=== PATIENT | female | born 1995 | race Caucasian/White ===

== ENCOUNTER 2017-08-19 10:47 | Emergency (ER) | payer OTHER ==
[~2017-08-19 10:47] MED LIST: NAPR500 PO
--- NOTE | 2017-08-19 11:22 | PD ---
HPI Chief Complaint Lost mucous plug Date Seen: Aug 19, 2017 Time Seen: 11:14 Travel History International Travel<30 Days: No Contact w/Intl Traveler<30Days: No Known Affected Area: No History of Present Illness HPI 22-year-old primigravida at 36+ weeks gestation who comes noting a mucousy discharge since last night. She reports that she was 2-3 cm dilated in the clinic this week. She denies significant contractions, bleeding or leakage of fluid. History Past Medical History Medical History: Denies Significant Hx Obstetric History Obstetric History Primigravida, she receives care with Dr. Eddy. She reports no complications with this . Past Surgical History Narrative Surgical Tonsillectomy Family History Family History: Negative Social History Alcohol Use: No Tobacco Use: No Substance Abuse: No Allergies-Medications (Allergen,Severity, Reaction): Coded Allergies: No Known Allergies (Verified , 06/22/15) Home Meds Active Scripts Naproxen (Naprosyn) 500 Mg Tab, 500 MG PO BID Y for PAIN, #20 TAB Prov:Allen Muir MD 06/22/15 Review of Systems Except as stated in HPI: all other systems reviewed are Neg Physical Exam Narrative GENERAL: Well-nourished, well-developed patient. SKIN: Warm and dry. HEAD: Normocephalic and atraumatic. EYES: No scleral icterus. No injection or drainage. ENT: No nasal drainage noted. Mucous membranes pink. Airway patent. NECK: Supple, trachea midline. No JVD. CARDIOVASCULAR: Regular rate and rhythm without murmurs, gallops, or rubs. RESPIRATORY: Breath sounds equal bilaterally. No accessory muscle use. BREASTS: Bilateral exam showed no masses , no retractions, no nipple discharge. ABDOMEN/GI: Abdomen soft, non-tender, bowel sounds present, no rebound, no guarding Gravid to [-] weeks size Fundal Height: [-32] GENITOURINARY: External Genitalia: intact and normal in appearance BUS glands: [-] Cervix: [-] Dilatation: [-2] Effacement: [80-] Station: [-] Presentation: [-vtx] Membranes: [intact] Uterine Contractions: [-] FHT's: Category: [1-] Baseline: [-] Reactive: [-yes] Variability: [-] Decels: [-] EXTREMITIES: No cyanosis or edema. BACK: Nontender without obvious deformity. No CVA tenderness. NEUROLOGICAL: Awake and alert. Motor and sensory grossly within normal limits. Five out of 5 muscle strength in all muscle groups. Normal speech. Data Data Vital Signs Reviewed: Yes MDM Medical Record Reviewed: Yes Narrative Course / MDM Assessment: Primigravida at 36+ weeks gestation with mucousy discharge not in labor Plan: Continue routine care Diagnosis Diagnosis: Primary Impression: 36 weeks gestation of Additional Impression: Vaginal discharge in in third trimester Disposition: 01 DISCHARGE HOME Condition: Good Bharathi Whitney MD Aug 19, 2017 11:22
== END 2017-08-19 12:57 | disposition home or self-care (01) ==
LOC: HOBED 10:47
DX: O26.893 Other specified pregnancy related conditions, third trimester (principal); N89.8 Other specified noninflammatory disorders of vagina; Z3A.36 36 weeks gestation of pregnancy
CPT/HCPCS: 59025

== ENCOUNTER 2017-08-28 11:45 | Inpatient (IN) | payer OTHER ==
[2017-08-28] VITALS (35 sets, daily range): BP systolic 105–133; BP diastolic 60–98; PULSE 67–122; RESP 16–18; TEMP 97.6–99.4
[~2017-08-28] VITALS: Ht 160 cm; Wt 60.0 kg
[2017-08-28] MEDS ORDERED: LACTATED RINGER'S 1000 ML INJ 1,000 ML IV PRN (12:26)
[2017-08-28] MEDS ORDERED: LACTATED RINGER'S 1000 ML INJ 1,000 ML IV SCH (12:26)
--- NOTE | 2017-08-28 12:26 | HHI.HP ---
HPI Chief Complaint Complains of painful contractions Date Seen: Aug 28, 2017 Time Seen: 12:20 Travel History International Travel<30 Days: No Contact w/Intl Traveler<30Days: No Known Affected Area: No History of Present Illness HPI Patient is 22-year-old white female at [address] Eddy for care presents with painful regular contractions. Denies bleeding or rupture the membranes. She thought she might be leaking a little fluid her amnio sure was negative, heart rate tracing is reactive and she is luis enrique every 2-3 minutes. Weeks Gestation: 38 Para: 0 : 1 History Social History Alcohol Use: No Tobacco Use: No Substance Abuse: No Allergies-Medications (Allergen,Severity, Reaction): Coded Allergies: No Known Allergies (Verified , 06/22/15) Home Meds Discontinued Scripts Naproxen (Naprosyn) 500 Mg Tab, 500 MG PO BID Y for PAIN, #20 TAB Prov:Allen Muir MD 06/22/15 Review of Systems General / Constitutional: No: Fever, Weight Gain, Chills, Other Eyes: No: Diploplia, Blurred Vision, Visual changes, Pain, Photophobia HENT: No: Headaches, Vertigo, Lightheadedness Cardiovascular: No: Irregular Rhythm, Chest Pain or Discomfort, Palpitations, Tachycardia, Syncope, Varicosities, Edema, Cyanosis Respiratory: No: Cough, Short of Breath, Other Gastrointestinal: Abdominal Pain, No: Nausea, Vomiting, Diarrhea Genitourinary: No: Decreased Urinary Output, Oliguria Musculoskeletal: No: Limited ROM, Weakness, Cramping, Edema, Pain Skin: No Rash, No Itching, No Dryness, No Lumps, No Change in Pigmentation, No Change in Nails, No Alopecia, No Lesions Neurologic: No: Weakness, Dizziness, Syncope, Focal Abnormalities, Coordination Problem, Headache, Slurred Speech, Seizures Psychiatric: No: Depression, Suicidal Ideations, Homicidal Ideation Endocrine: No: Heat Intolerance, Cold Intolerance, Polydipsia, Polyuria, Other Physical Exam Narrative GENERAL: Well-nourished, well-developed patient. SKIN: Warm and dry. HEAD: Normocephalic and atraumatic. EYES: No scleral icterus. No injection or drainage. ENT: No nasal drainage noted. Mucous membranes pink. Airway patent. NECK: Supple, trachea midline. No JVD. CARDIOVASCULAR: Regular rate and rhythm without murmurs, gallops, or rubs. RESPIRATORY: Breath sounds equal bilaterally. No accessory muscle use. BREASTS: Bilateral exam showed no masses , no retractions, no nipple discharge. ABDOMEN/GI: Abdomen soft, non-tender, bowel sounds present, no rebound, no guarding Gravid to [38-] weeks size Fundal Height: [38-] GENITOURINARY: External Genitalia: intact and normal in appearance BUS glands: [-] Cervix: [-] Dilatation: [4-] Effacement: [90-] Station: [-1] Presentation: [vtx-] Membranes: [intact amnisure neg] Uterine Contractions: [q 2-3 min-] FHT's: Category: [-1] Baseline: [133-] Reactive: [yes-] Variability: [mod-] Decels: [0-] EXTREMITIES: No cyanosis or edema. BACK: Nontender without obvious deformity. No CVA tenderness. NEUROLOGICAL: Awake and alert. Motor and sensory grossly within normal limits. Five out of 5 muscle strength in all muscle groups. Normal speech. Caprini VTE Risk Assessment Caprini VTE Risk Assessment: No/Low Risk (score <= 1) Caprini Risk Assessment Model Point Value = 1 Point Value = 2 Point Value = 3 Point Value = 5 Age 41-60 Minor surgery BMI > 25 kg/m2 Swollen legs Varicose veins or History of unexplained or recurrent spontaneous Oral contraceptives or hormone replacement Sepsis (< 1 month) Serious lung disease, including pneumonia (< 1 month) Abnormal pulmonary function Acute myocardial infarction Congestive heart failure (< 1 month) History of inflammatory bowel disease Medical patient at bed rest Age 61-74 Arthroscopic surgery Major open surgery (> 45 min) Laparoscopic surgery (> 45 min) Malignancy Confined to bed (> 72 hours) Immobilizing plaster cast Central venous access Age >= 75 History of VTE Family history of VTE Factor V Leiden Prothrombin [id number] Lupus anticoagulant Anticardiolipin antibodies Elevated serum homocysteine Heparin-induced thrombocytopenia Other congenital or acquired thrombophilia Stroke (< 1 month) Elective arthroplasty Hip, pelvis, or leg fracture Acute spinal cord injury (< 1 month) Prophylaxis Regimen Total Risk Factor Score Risk Level Prophylaxis Regimen 0-1 Low Early ambulation 2 Moderate Order ONE of the following: *Sequential Compression Device (SCD) *Heparin 5000 units SQ BID 3-4 Higher Order ONE of the following medications: *Heparin 5000 units SQ TID *Enoxaparin/Lovenox 40 mg SQ daily (WT < 150 kg, CrCl > 30 mL/min) *Enoxaparin/Lovenox 30 mg SQ daily (WT < 150 kg, CrCl > 10-29 mL/min) *Enoxaparin/Lovenox 30 mg SQ BID (WT < 150 kg, CrCl > 30 mL/min) AND/OR *Sequential Compression Device (SCD) 5 or more Highest Order ONE of the following medications: *Heparin 5000 units SQ TID (Preferred with Epidurals) *Enoxaparin/Lovenox 40 mg SQ daily (WT < 150 kg, CrCl > 30 mL/min) *Enoxaparin/Lovenox 30 mg SQ daily (WT < 150 kg, CrCl > 10-29 mL/min) *Enoxaparin/Lovenox 30 mg SQ BID (WT < 150 kg, CrCl > 30 mL/min) AND *Sequential Compression Device (SCD) Assessment/Plan Assessment and Plan Patient is 22-year-old white female at 38 weeks goes to the [facility] and presents in active labor. Cervix is 4 cm 90% effaced. Contractions are regular. heart rate tracing is reactive. Plan--admit to labor and delivery, manage labor ,augment as needed ,and anticipate vaginal delivery will discuss with her OB, doctor David White II, MD Aug 28, 2017 12:26
[2017-08-28] MEDS ORDERED: SODIUM CHLORID 0.9% 500 ML INJ 500 ML IV PRN (12:30)
[2017-08-28] MEDS ORDERED: OXYTOCIN 30 UNITS-500ML PREMIX 500 ML IV ONE (12:30)
[2017-08-28] MEDS ORDERED: CITRIC ACID-SODIUM CITRATE LIQ 30 ML UDC PO SCH (12:30)
[2017-08-28] MEDS ORDERED: ONDANSETRON HCL 4 MG/2 ML VIAL IV PUSH PRN (12:30)
[2017-08-28] MEDS ORDERED: LIDOCAINE HCL 1% 50 ML VIAL INFIL PRN (12:30)
[2017-08-28] MEDS ORDERED: LIDOCAINE HCL 1% 50 ML VIAL I-DERMAL PRN (12:30)
[2017-08-28] MEDS ORDERED: MINERAL OIL 10 ML VIAL TOPICAL PRN (12:30)
[2017-08-28] MEDS ORDERED: SODIUM CHLOR 0.9% 1000 ML INJ 1,000 ML IV PRN (12:46)
[2017-08-28 13:30] LABS: AUTOMATED NEUTROPHIL # 19.4 TH/MM3 (1.8-7.7); BASOPHIL % 0.1 % (0.0-2.0); EOSINOPHIL % 0.1 % (0.0-4.0); HEMATOCRIT 36.9 % (35.0-46.0); HEMO FLAGS DIFF FINAL; LYMPH % 8.7 % (9.0-44.0); LYMPHOCYTE # 1.9 TH/MM3 (1.0-4.8); MEAN CORPUSCULAR HEMOGLOBIN 30.1 PG (27.0-34.0); MEAN CORPUSCULAR HGB CONC 33.4 % (32.0-36.0); MONO % 3.9 % (0.0-8.0); NEUT % 87.2 % (16.0-70.0); PLATELET COUNT 212 TH/MM3 (150-450); RED CELL DISTRIBUTION WIDTH 12.8 % (11.6-17.2); WHITE BLOOD COUNT 22.3 TH/MM3 (4.0-11.0)
[2017-08-28] MEDS ORDERED: ePHEDrine/NS 25 MG/5 ML SYRINGE ONE (13:58)
[2017-08-28] MEDS ORDERED: fentaNYL 2MCG-BUPIV 0.125% INJ 100 ML ONE (13:58)
[2017-08-28] MEDS ORDERED: NO SYSTEM NARCOTICS PRN (14:45)
[2017-08-28] MEDS ORDERED: DO NOT ADMINISTER ANTICOAGULANTS PRN (14:45)
[2017-08-28] MEDS ORDERED: fentaNYL 2MCG-BUPIV 0.125% 100 ML EPIDURAL SCH (14:45)
[2017-08-28] MEDS ORDERED: ePHEDrine/NS 25 MG/5 ML SYRINGE IV PUSH PRN (15:00)
[2017-08-28] MEDS ORDERED: DIPHTH/TETANUS/ACEL PERTUSSIS (BOOSTER) 0.5 ML VIAL/PFS IM ONE (16:00)
[2017-08-28] MEDS ORDERED: MEASLES, MUMPS, RUBELLA VACCINE 0.5 ML VIAL SQ ONE (16:00)
[2017-08-28 17:11] LABS: BLOOD, URINE SMALL (NEG); COMMENT (UR) CULT NOT INDICATED; CULTURE IF INDICATED CULT NOT INDICATED; GLUCOSE,URINE NEG (NEG); KETONE, URINE 40 mg/dL (NEG); MUCUS URINE FEW /lpf (OCC); NITRITE,URINE NEG (NEG); PH, URINE 6.5 (5.0-8.5); SQUAMOUS EPITHELIAL CELL URINE 1 /hpf (0-5); URINE COLOR YELLOW (YELLW/STRAW)
--- NOTE | 2017-08-28 20:27 | PD.OB.DELI ---
Weeks gestation: 38 Gest age assessed date: Aug 28, 2017 Gest age assessed time: 19:00 Pt started active labor?: Yes Medical induction of labor?: No Artificial rupture of membrane: Yes (clear fluid) Artifical ROM time: 16:29 Anesthesia: Epidural Episiotomy: None Vaginal Delivery: Normal, Spontaneous Presentation: Occiput anterior Nuchal Cord: None, Other (three-vessel cord, intact) Delayed cord clamping (45 sec): Yes Shoulder Dystocia: Other (none required) Infant: Male, Single Delivery date: Aug 28, 2017 Delivery time: 19:32 One Minute : 9 Five Minute : 9 Placenta: Spontaneous delivery, Intact, 3 vessel cord Laceration: 1 deg (superficial left sulcal first-degree, right labial laceration,) Repair: Vicryl interrupted (right labial), Vicryl running (posterior lac) Estimated blood loss: 300 Additional Information The patient began pushing after the bed was broken down, the head upon was allowed to restitute naturally after delivery with a supported perineum, with gentle downward guidance anterior shoulder was delivered followed by gentle upper guidance for the posterior shoulder, the torso and lower extremities delivered with ease with continued perineal support. The had spontaneous cry and was placed on mom's abdomen for skin to skin contact, we allow delayed cord clamping. After the cord was clamped and cut, cord blood was obtained. Pitocin was bolused and with fundal massage the placenta was delivered , there is minimal bleeding from above and uterus was firm. The perineum vagina and cervix were inspected and a first-degree was repaired with 3-0 Vicryl in a running fashion, and the right labial was repaired externally with interrupteds and internally with running 3-0 Vicryl. The patient tolerated the procedure well and was left in the birthing suite with her . Matthew Navarro MD Aug 28, 2017 20:27
[2017-08-28] MEDS ORDERED: ZOLPIDEM TARTRATE 5 MG TAB PO PRN (20:30)
[2017-08-28] MEDS ORDERED: ACETAMINOPHEN 325 MG TAB PO PRN (20:30)
[2017-08-28] MEDS ORDERED: WITCH HAZEL 50%/GLYCERIN 12.5% 40 PAD JAR TOPICAL PRN (20:30)
[2017-08-28] MEDS ORDERED: ONDANSETRON ODT 4 MG TAB PO PRN (20:30)
[2017-08-28] MEDS ORDERED: DOCUSATE SODIUM 50 MG/SENNA 8.6 MG TAB PO PRN (20:30)
[2017-08-28] MEDS ORDERED: ALUMINUM/MAGNESIUM/SIMETH 30 ML CUP PO PRN (20:30)
[2017-08-28] MEDS ORDERED: IBUPROFEN 800 MG TAB PO PRN (20:30)
[2017-08-28] MEDS ORDERED: SODIUM CHLORIDE 0.9% FLUSH 10 ML FLUSH IV FLUSH PRN (20:30)
[2017-08-28] MEDS ORDERED: BENZOCAINE 20% TOPICAL SPRAY 60 ML CAN TOPICAL PRN (20:30)
[2017-08-28] MEDS ORDERED: OXYTOCIN 30 UNITS-500ML PREMIX 500 ML IV SCH (20:30)
[2017-08-28] MEDS ORDERED: oxyCODONE/ACETAMINOPHEN 5 MG/325 MG TAB PO PRN ×2 (20:30)
--- NOTE | 2017-08-28 20:51 | HHI.DCPOC ---
Discharge Care Plan Diagnosis: (1) Normal vaginal delivery (2) Term (3) Normal labor Your Health Problems Are: Vaginal delivery Report Symptoms to Your Doctor -Temperature above 100.5 degrees -Redness, of incision or excessive or foul smelling drainage -Unusual pain or calf pain -Increased vaginal bleeding -Painful or difficulty urinating -Feelings of extreme sadness or anxiety after 2 weeks Goals to Promote Your Health * To prevent worsening of your condition and complications * To maintain your health at the optimal level Directions to Meet Your Goals Take your medications as prescribed Follow your dietary instruction Follow activity as directed Ensure plenty of rest for recovery Drink fluids for hydration Keep your appointments as scheduled Take your immunizations and boosters as scheduled If your symptoms worsen call your PCP, if no PCP go to Urgent Care Center or Emergency Room Smoking is Dangerous to Your Health. Avoid second hand smoke Call the 24-hour crisis hotline for domestic abuse at Matthew Navarro MD Aug 28, 2017 20:51
[2017-08-28] MEDS ORDERED: SODIUM CHLORIDE 0.9% FLUSH 10 ML FLUSH IV FLUSH SCH (21:00)
[2017-08-29 07:41] VITALS: BP 105/63; PULSE 82; RESP 18; TEMP 98.3; O2SAT 98
--- NOTE | 2017-08-29 08:34 | HHI.OB ---
Subjective Post Day: 1 Remarks doing well Objective Vitals/I&O Vital Signs Date Time Temp Pulse Resp B/P (MAP) Pulse Ox O2 Delivery O2 Flow Rate FiO2 08/29/17 07:41 98.3 18 98 08/29/17 07:41 82 105/63 (77) 08/28/17 23:00 98.5 85 18 121/67 (85) 08/28/17 22:50 98.5 08/28/17 22:50 85 18 121/67 (85) 08/28/17 22:00 99.4 18 08/28/17 21:45 99 114/67 (83) 08/28/17 21:30 91 119/69 (86) 08/28/17 21:27 16 08/28/17 21:15 95 122/74 (90) 08/28/17 21:15 16 08/28/17 21:00 16 08/28/17 21:00 67 118/66 (83) 08/28/17 20:45 78 120/61 (80) 08/28/17 20:30 81 116/71 (86) 08/28/17 20:26 18 08/28/17 20:15 98.4 08/28/17 20:15 86 18 105/69 (81) 08/28/17 20:14 87 112/67 (82) 08/28/17 18:30 122 126/78 (94) 08/28/17 18:00 83 111/60 (77) 08/28/17 17:30 84 118/80 (93) 08/28/17 17:00 93 119/73 (88) 08/28/17 16:30 92 118/74 (89) 08/28/17 16:13 97.9 18 08/28/17 16:00 94 117/76 (90) 08/28/17 15:34 18 08/28/17 15:30 97 122/75 (91) 08/28/17 15:00 83 117/71 (86) 08/28/17 14:45 104 127/71 (89) 08/28/17 14:45 85 08/28/17 14:40 103 08/28/17 14:40 91 116/98 (104) 08/28/17 14:35 80 114/62 (79) 08/28/17 14:35 79 08/28/17 14:30 81 117/70 (86) 08/28/17 14:30 83 08/28/17 14:25 82 115/69 (84) 08/28/17 14:25 79 08/28/17 14:20 82 114/69 (84) 08/28/17 14:20 83 08/28/17 14:15 80 122/74 (90) 08/28/17 14:15 83 08/28/17 14:10 83 08/28/17 14:10 85 133/77 (95) 08/28/17 14:08 80 126/72 (90) 08/28/17 14:05 81 08/28/17 14:00 82 08/28/17 13:46 97.6 08/28/17 13:45 82 18 132/77 (95) Objective Remarks GENERAL: Well-nourished, well-developed patient. CARDIOVASCULAR: Regular rate and rhythm without murmurs, gallops, or rubs. RESPIRATORY: Breath sounds equal bilaterally. No accessory muscle use. ABDOMEN/GI: Abdomen soft, non-tender. Fundus: Firm, non-tender at umbilicus. GENITOURINARY: Light to moderate bleeding. EXTREMITIES: No cyanosis or edema, non-tender, without signs of DVT. Medications and IVs Current Medications Medications (Trade) Dose Ordered Sig/Larry Route Start Time Stop Time Status Last Admin (NS Flush) 2 ml BID IV FLUSH 08/28/17 21:00 (NS Flush) 2 ml UNSCH PRN IV FLUSH 08/28/17 20:30 (Tylenol) 650 mg Q4H PRN PO 08/28/17 20:30 (Motrin) 800 mg Q8H PRN PO 08/28/17 20:30 (Percocet 5-325 Mg) 1 tab Q4H PRN PO 08/28/17 20:30 (Percocet 5-325 Mg) 2 tab Q4H PRN PO 08/28/17 20:30 (Americaine 20% Top Spr) 1 spray Q4H PRN TOPICAL 08/28/17 20:30 (Tucks Pads) 1 applic QID PRN TOPICAL 08/28/17 20:30 (Ana María-Colace) 2 tab Q12H PRN PO 08/28/17 20:30 (Ambien) 5 mg HS PRN PO 08/28/17 20:30 (Mag-Al Plus Susp Liq) 15 ml Q8H PRN PO 08/28/17 20:30 (Zofran Odt) 4 mg Q6H PRN PO 08/28/17 20:30 Assessment/Plan Problem List: (1) Normal vaginal delivery ICD Codes: O80 - Encounter for full-term uncomplicated delivery Assessment and Plan s/p ppd #1r Discharge Planning routine Attending Attestation pt seen by Melanie Gordon MD Aug 29, 2017 08:34
[2017-08-29 20:00] VITALS: BP 113/67; PULSE 77; RESP 18; TEMP 98.3; O2SAT 99
--- NOTE | 2017-08-30 07:17 | HHI.OB ---
Subjective Post Day: 2 Remarks doing well with nursing no issues Objective Vitals/I&O Vital Signs Date Time Temp Pulse Resp B/P (MAP) Pulse Ox O2 Delivery O2 Flow Rate FiO2 08/29/17 20:00 113/67 (82) 08/29/17 20:00 98.3 77 18 99 08/29/17 07:41 98.3 18 98 08/29/17 07:41 82 105/63 (77) Objective Remarks GENERAL: Well-nourished, well-developed patient. CARDIOVASCULAR: Regular rate and rhythm without murmurs, gallops, or rubs. RESPIRATORY: Breath sounds equal bilaterally. No accessory muscle use. ABDOMEN/GI: Abdomen soft, non-tender. Fundus: Firm, non-tender at umbilicus. GENITOURINARY: Light to moderate bleeding. EXTREMITIES: No cyanosis or edema, non-tender, without signs of DVT. Medications and IVs Current Medications Medications (Trade) Dose Ordered Sig/Larry Route Start Time Stop Time Status Last Admin (NS Flush) 2 ml BID IV FLUSH 08/28/17 21:00 (NS Flush) 2 ml UNSCH PRN IV FLUSH 08/28/17 20:30 (Tylenol) 650 mg Q4H PRN PO 08/28/17 20:30 (Motrin) 800 mg Q8H PRN PO 08/28/17 20:30 (Percocet 5-325 Mg) 1 tab Q4H PRN PO 08/28/17 20:30 (Percocet 5-325 Mg) 2 tab Q4H PRN PO 08/28/17 20:30 (Americaine 20% Top Spr) 1 spray Q4H PRN TOPICAL 08/28/17 20:30 (Tucks Pads) 1 applic QID PRN TOPICAL 08/28/17 20:30 (Ana María-Colace) 2 tab Q12H PRN PO 08/28/17 20:30 (Ambien) 5 mg HS PRN PO 08/28/17 20:30 (Mag-Al Plus Susp Liq) 15 ml Q8H PRN PO 08/28/17 20:30 (Zofran Odt) 4 mg Q6H PRN PO 08/28/17 20:30 Assessment/Plan Problem List: (1) Normal vaginal delivery ICD Codes: O80 - Encounter for full-term uncomplicated delivery Assessment and Plan s/p ppd #1r 08/30/17 no issues of concern ready for discharge Discharge Planning routine Kristina Eddy MD Aug 30, 2017 07:17
[2017-08-30 08:00] VITALS: BP 110/71; PULSE 79; RESP 18; TEMP 97.8; O2SAT 99
== END 2017-08-30 14:00 | disposition home or self-care (01) | DRG 775 ==
LOC: HOBED 11:45 → H2EA 12:39 → H1EA 22:07
PROVIDERS: ADMIT Obstetrics & Gynecology; ATTEND Obstetrics & Gynecology
PROC: 10E0XZZ Delivery of Products of Conception, External Approach (ICD-10-PCS; principal; 2017-08-28)
PROC: 0HQ9XZZ Repair Perineum Skin, External Approach (ICD-10-PCS; 2017-08-28)
PROC: 10907ZC Drainage of Amniotic Fluid, Therapeutic from Products of Conception, Via Natural or Artificial Opening (ICD-10-PCS; 2017-08-28)
DX: O66.0 Obstructed labor due to shoulder dystocia (principal); O70.0 First degree perineal laceration during delivery; Z37.0 Single live birth; Z3A.38 38 weeks gestation of pregnancy
CPT/HCPCS: 59025; 80307; 81001; 84112; 85025; 86850; 86900; 86901; J7120